=== PATIENT | male | born 1945 | race Caucasian/White ===

== ENCOUNTER 2018-01-29 11:04 | Day surgery (SDC) | payer MEDICARE, OTHER ==
[2018-01-29] MEDS: NS 1,000 ML IV (11:21)
[2018-01-29] MEDS ORDERED: PROPOFOL 200 MG/20 ML VIAL As Ordered (11:29)
[2018-01-29] MEDS ORDERED: LIDOCAINE 2% INJ 100 MG/5 ML SDV (FOR ANES.) As Ordered (11:30)
[2018-01-29] MEDS ORDERED: fentaNYL 100 MCG/2 ML INJECTION (J3010) As Ordered (11:32)
== END 2018-01-29 12:45 | disposition home or self-care (01) ==
LOC: M OPP 11:04
DX: K22.2 Esophageal obstruction (principal); K21.9 Gastro-esophageal reflux disease without esophagitis; K44.9 Diaphragmatic hernia without obstruction or gangrene; K29.70 Gastritis, unspecified, without bleeding; M19.90 Unspecified osteoarthritis, unspecified site; F41.9 Anxiety disorder, unspecified; F33.9 Major depressive disorder, recurrent, unspecified; G47.30 Sleep apnea, unspecified; Z98.890 Other specified postprocedural states; Z88.1 Allergy status to other antibiotic agents; Z88.2 Allergy status to sulfonamides; Z79.899 Other long term (current) drug therapy
CPT/HCPCS: 43239

== ENCOUNTER 2018-12-31 13:18 | Emergency (ER) | payer MEDICARE, OTHER ==
[~2018-12-31] VITALS: Ht 172.7 cm; Wt 92.8 kg
[2018-12-31 13:18] VITALS: BP 135/95
[~2018-12-31 13:18] MED LIST: CLON1TAB8 PO; LEXA1TAB2 PO; PREV1CAP PO
[2018-12-31] MEDS ORDERED: QUET5TAB (13:25)
[2018-12-31] MEDS ORDERED: clonazePAM 0.5 MG TAB PO ONE (15:00)
[2018-12-31] MEDS ORDERED: METAL LOCK LOOP XX ONE (17:01)
== END 2018-12-31 17:25 | disposition home or self-care (01) ==
LOC: M ED 13:18
DX: F41.9 Anxiety disorder, unspecified (principal); K21.9 Gastro-esophageal reflux disease without esophagitis; G47.30 Sleep apnea, unspecified; Z88.2 Allergy status to sulfonamides; Z79.899 Other long term (current) drug therapy

== ENCOUNTER → 2019-01-09 | Outpatient (CLI) | payer MEDICARE, OTHER ==
[~2019-01-09] MED LIST changes: +QUET5TAB
--- NOTE | 2019-01-13 10:02 | SLEEPCENT ---
DATE OF STUDY: 01/09/2019 ORDERING PROVIDER: LITZY Mahoney Nocturnal polysomnography was performed for the titration of pressure therapy in this patient on bilevel therapy with a history of irregular breathing despite use of the device. For testing, a ResMed AirFit F20 full face mask of medium size was used. An initial pressure, inspiratory 10 over expiratory 7, was applied to the circuit, and the lights were extinguished. The patient had a good deal of difficulty establishing sleep. 9 hours and 3 minutes of data were reviewed. There were only 92.5 minutes of sleep identified. Sleep latency was quite prolonged at 357.5 minutes. Rapid eye movement (REM) latency was short at 55.5 minutes. Sleep architecture is difficult to distribution coordinator. Overall sleep efficiency was 17.2%. The patient's electrocardiogram showed sinus rhythm with an average heart rate of 58 beats per minute. Electroencephalogram (EEG) showed some alpha intrusion. Otherwise, normal waveforms for awake and sleep. Respiratory events appeared to be fairly well palliated at a bilevel pressure of 13 inspiratory, 8 expiratory. Further increases in pressure led to the emergence of central events. There was some activity in the limb leads. Movement arousal index was 5.2. IMPRESSION: Obstructive sleep apnea syndrome (G47.33). RECOMMENDATION: Nightly use of bilevel pressure therapy, inspiratory 13 over expiratory of 8. Given the severely delayed sleep onset, attention to sleep hygiene may also be necessary.
== END ==
LOC: M SLEEP 20:00
PROVIDERS: ATTEND Nurse Practitioner Adult Health
DX: G47.33 Obstructive sleep apnea (adult) (pediatric) (principal)

== ENCOUNTER → 2019-11-12 | Outpatient (CLI) | payer MEDICARE, OTHER ==
[~2019-11-12] MED LIST changes: +BUTA1TAB48 PO; +CVS1CAP56 PO; +MIRT1TAB15 PO; +MULTCAP PO; +NAPR-885 PO; +SERT-141 PO; +VITA500C24 PO
== END ==
LOC: M LABSMTC 14:01
PROVIDERS: ATTEND Anesthesiology
DX: Z01.812 Encounter for preprocedural laboratory examination (principal); Z20.828 Contact with and (suspected) exposure to other viral communicable diseases

== ENCOUNTER 2019-11-17 07:45 | Day surgery (SDC) | payer MEDICARE, OTHER ==
[~2019-11-17] VITALS: Ht 172.7 cm; Wt 83.0 kg
[~2019-11-17 07:45] MED LIST changes: -BUTA1TAB48 PO; -CVS1CAP56 PO; +LIDOCAINE 2% 100MG/5ML SDV (FOR ANES.) As Ordered ONE; -NAPR-885 PO; +NS 1,000 ML IV ONE; -VITA500C24 PO; +propofoL 200 MG/20 ML VIAL As Ordered ONE
[2019-11-17] MEDS ORDERED: BUTA1TAB48 PO (08:19)
[2019-11-17] MEDS ORDERED: CVS1CAP56 PO (08:19)
[2019-11-17] MEDS ORDERED: VITA500C24 PO (08:19)
[2019-11-17] MEDS ORDERED: NAPR-885 PO (08:19)
[2019-11-17 09:20] VITALS: BP 135/61
--- NOTE | 2019-12-01 11:30 | ROOR ---
Patient Name: Zion Gillespie Procedure Date: 11/17/2019 8:28 AM Date of : 1945 Age: 74 Room: [facility] Gender: Male Note Status: Finalized Procedure: Colonoscopy Indications: Abdominal pain in the left lower quadrant, Abnormal CT of the GI tract Providers: Amilcar Reyes MD Referring MD: GARY PASTRANA Requesting Provider: Medicines: Monitored Anesthesia Care Complications: No immediate complications. Procedure: Pre-Anesthesia Assessment: - Prior to the procedure, a History and Physical was performed, and patient medications and allergies were reviewed. The patient is competent. The risks and benefits of the procedure and the sedation options and risks were discussed with the patient. All questions were answered and informed consent was obtained. Patient identification and proposed procedure were verified by the physician, the nurse and the anesthesiologist in the endoscopy suite. Mental Status Examination: alert and oriented. Airway Examination: normal oropharyngeal airway and neck mobility. Respiratory Examination: clear to auscultation. CV Examination: normal. Prophylactic Antibiotics: The patient does not require prophylactic antibiotics. Prior Anticoagulants: The patient has taken no previous anticoagulant or antiplatelet agents. ASA Grade Assessment: III - A patient with severe systemic disease. After reviewing the risks and benefits, the patient was deemed in satisfactory condition to undergo the procedure. The anesthesia plan was to use monitored anesthesia care (MAC). Immediately prior to administration of medications, the patient was re-assessed for adequacy to receive sedatives. The heart rate, respiratory rate, oxygen saturations, blood pressure, adequacy of pulmonary ventilation, and response to care were monitored throughout the procedure. The physical status of the patient was re-assessed after the procedure. The Colonoscope was introduced through the anus and advanced to the cecum, identified by appendiceal orifice and ileocecal valve. The colonoscopy was performed without difficulty. The patient tolerated the procedure well. The quality of the bowel preparation was good. Findings: Hemorrhoids were found on perianal exam. Multiple small-mouthed diverticula were found in the sigmoid colon, descending colon, transverse colon and ascending colon. There was narrowing of the colon in association with the diverticular opening. Petechia were visualized in association with the diverticular opening. There was no evidence of diverticular bleeding. Multiple petechiae were found in the sigmoid colon and in the descending colon. This was biopsied with a cold forceps for evaluation of collagenous colitis. The retroflexed view of the distal rectum and anal verge was normal and showed no anal or rectal abnormalities. Impression: - Hemorrhoids found on perianal exam. - Moderate diverticulosis in the sigmoid colon, in the descending colon, in the transverse colon and in the ascending colon. There was narrowing of the colon in association with the diverticular opening. Petechia were visualized in association with the diverticular opening. There was no evidence of diverticular bleeding. - Petechia(e) in the sigmoid colon and in the descending colon. Biopsied. - The distal rectum and anal verge are normal on retroflexion view. Recommendation: - Discharge patient to home (ambulatory). - High fiber diet indefinitely. - Use original regular Metamucil one teaspoon PO daily indefinitely. Amilcar Reyes MD Amilcar Reyes MD 11/17/2019 9:03:53 AM Electronically signed by Amilcar Reyes MD Number of Addenda: 0 Note Initiated On: 11/17/2019 8:28 AM Estimated Blood Loss: Estimated blood loss was minimal.
== END 2019-11-17 09:29 | disposition home or self-care (01) ==
LOC: M OPP 07:45
PROVIDERS: ATTEND Surgery
DX: K64.8 Other hemorrhoids (principal); K63.89 Other specified diseases of intestine; R10.32 Left lower quadrant pain; K57.30 Diverticulosis of large intestine without perforation or abscess without bleeding; R93.3 Abnormal findings on diagnostic imaging of other parts of digestive tract; G47.30 Sleep apnea, unspecified; Z79.899 Other long term (current) drug therapy; Z88.2 Allergy status to sulfonamides

== ENCOUNTER → 2020-01-20 | Outpatient (REF) | payer MEDICARE, OTHER ==
[~2020-01-20] MED LIST changes: +BUTA1TAB48 PO; +CVS1CAP56 PO; -LIDOCAINE 2% 100MG/5ML SDV (FOR ANES.) As Ordered ONE; +NAPR-885 PO; -NS 1,000 ML IV ONE; +VITA500C24 PO; -propofoL 200 MG/20 ML VIAL As Ordered ONE
== END ==
LOC: M LAB REF 17:04
PROVIDERS: ATTEND Internal Medicine Nephrology
DX: R51.9 Headache, unspecified (principal)

== ENCOUNTER → 2020-01-20 | Outpatient (CLI) | payer MEDICARE, OTHER ==
--- NOTE | 2020-01-20 13:49 | REP ---
INDICATION: TMJ PAIN HARJINDER PT AT FILE RM. COMPARISON: None. TECHNIQUE: Six views. FINDINGS: No destructive lesion is seen in the bony mandible. Mandibular condyles and condylar necks appear intact. Temporal fossa show no abnormality. Open mouth views demonstrate limited opening translation on the left. No evidence of arthropathy is seen radiographically. IMPRESSION: No acute bony abnormality. Somewhat limited opening translation on the left. Otherwise negative. <Electronically signed by Chu Huber > 01/20/20 [id number]
== END ==
LOC: M RAD 10:49
PROVIDERS: ATTEND Psychiatry & Neurology Neurology
DX: R51.9 Headache, unspecified (principal); M26.603 Bilateral temporomandibular joint disorder, unspecified; M31.6 Other giant cell arteritis

== ENCOUNTER → 2020-07-25 | Outpatient (CLI) | payer MEDICARE, OTHER ==
[~2020-07-25] MED LIST changes: +QUET50TA3; -QUET5TAB
--- NOTE | 2020-07-25 15:23 | REP ---
INDICATION: SOB WITH EXERTION X 1 MONTH. COMPARISON: None. FINDINGS: The superior mediastinal structures are midline. The cardiac silhouette is unremarkable in size, shape, and position. The diaphragmatic surfaces of the lungs are regular, and the costophrenic angles are clear. The pulmonary puente are clear. The imaged osseous structures are intact. IMPRESSION: There is no acute cardiopulmonary disease. <Electronically signed by Kenneth Santacruz > 07/25/20 [id number]
== END ==
LOC: M WUC 14:38
PROVIDERS: ATTEND Physician Assistant
DX: R06.02 Shortness of breath (principal)